=== PATIENT | male | born 1965 | race Caucasian/White ===

== ENCOUNTER 2019-08-22 08:30 | Inpatient (IN) ==
[~2019-08-22 08:30] MED LIST: LIDOCAINE W/ SODIUM BICARB 0.5 ML SYR SUBD ONE; Lactated Ringers 1,000 ML PRIMARY IV ONE; Nasal Sanitizer POPSWAB ampule 3 AMP (Nozin) PREOP DOSE ENOS SCH; Vancomycin 1.5 gm (Premix) 1.5 GM/300 ML PIGGYBACK IV ONE; Vancomycin-PHA to Dose IV PRN; ceFAZolin Inj 2gm (Premix) 2 GM/50 ML BAG IV ONE
[2019-08-22] MEDS ORDERED: Vancomycin 1.5 gm (Premix) 1.5 GM/300 ML PIGGYBACK IV ONE (09:32)
[2019-08-22] MEDS ORDERED: ceFAZolin Inj 2gm (Premix) 2 GM/50 ML BAG IV ONE (09:32)
[2019-08-22] MEDS ORDERED: LIDOCAINE W/ SODIUM BICARB 0.5 ML SYR ONE (09:33)
[2019-08-22] MEDS ORDERED: Lactated Ringers 1,000 ML PRIMARY IV ONE ×2 (09:33→15:11)
[2019-08-22] MEDS ORDERED: MIDAZOLAM HCL 2 MG/2 ML VIAL ONE (13:13)
[2019-08-22] MEDS ORDERED: REMIFENTANIL HCL 2 MG VIAL IV ONE ×2 (13:13→16:11)
[2019-08-22] MEDS ORDERED: KETAMINE 100 MG/1 ML - 5 ML ONE (13:13)
[2019-08-22] MEDS ORDERED: fentaNYL Inj 100 MCG/2 ML VIAL ONE (13:13)
[2019-08-22] MEDS ORDERED: DEXAMETHASONE PF 10 MG/1 ML VIAL ONE (13:14)
[2019-08-22] MEDS ORDERED: Propofol 1,000 MG/100 ML VIAL IV ONE ×3 (13:27→17:38)
[2019-08-22] MEDS ORDERED: KETOROLAC 30 MG/1 ML VIAL ONE ×2 (13:48→20:09)
[2019-08-22] MEDS ORDERED: THROMBIN (BOVINE) 20,000 UNIT KIT TOPICAL ONE ×2 (14:21→18:01)
[2019-08-22] MEDS ORDERED: BACITRACIN 50,000 UNIT VIAL IRRIG ONE (14:21)
[2019-08-22] MEDS ORDERED: Vancomycin Inj 1gm vial ONE (14:21)
[2019-08-22] MEDS ORDERED: Sodium Chloride 0.9% vial 10 ML ONE (14:21)
[2019-08-22] MEDS ORDERED: LIDOCAINE HCL 2 % 10 ML JELLY URO-JECT TOPICAL ONE (14:29)
[2019-08-22] MEDS ORDERED: HYDROmorphone 2 MG/1 ML ONE ×3 (14:36→20:22)
[2019-08-22] MEDS ORDERED: NEOMYCIN/BACITRACIN/POLYMYXIN 0.9 GM OINT PACKET TOPICAL ONE (14:54)
[2019-08-22] MEDS ORDERED: LIDOCAINE HCL 2 % 10 ML JELLY URO-JECT TOPICAL PRN (15:22)
[2019-08-22] MEDS ORDERED: ONDANSETRON 4 MG/2 ML VIAL IVP PRN ×2 (15:56→20:50)
[2019-08-22] MEDS ORDERED: HYDROmorphone 2 MG/1 ML IVP PRN (15:56)
[2019-08-22] MEDS ORDERED: Prochlorperazine Edisylate Inj 10mg/2ml vial IVP PRN (15:56)
[2019-08-22] MEDS ORDERED: Ondansetron ODT Tab 8 MG TAB PO PRN (15:56)
[2019-08-22] MEDS ORDERED: fentaNYL Inj 100 MCG/2 ML VIAL IVP PRN (15:56)
[2019-08-22] MEDS ORDERED: LIDOCAINE W/ SODIUM BICARB 0.5 ML SYR SUBD PRN (15:56)
[2019-08-22] MEDS ORDERED: ATROPINE SULFATE 0.4 MG/1 ML VIAL IVP PRN (15:56)
[2019-08-22] MEDS ORDERED: DIAZEPAM 10 MG/2 ML (5 MG/1 ML) CARPUJECT IVP ONE (15:58)
[2019-08-22] MEDS ORDERED: Lactated Ringers 1,000 ML PRIMARY IV SCH (16:00)
[2019-08-22] MEDS ORDERED: REMIFENTANIL 1 MG/1 ML IV ONE (18:19)
[2019-08-22] MEDS ORDERED: DIAZEPAM 10 MG/2 ML (5 MG/1 ML) CARPUJECT ONE (19:43)
[2019-08-22] MEDS ORDERED: KETOROLAC 30 MG/1 ML VIAL IM ONE (20:04)
[2019-08-22] MEDS ORDERED: CALCIUM CARBONATE 500 MG (TUMS) CHEWABLE TABLET PO PRN (20:50)
[2019-08-22] MEDS ORDERED: DOCUSATE 100 MG CAPSULE PO PRN (20:50)
[2019-08-22] MEDS ORDERED: D5-1/2NS + 20mEq KCL 1,000 ML PRIMARY IV SCH (20:50)
[2019-08-22] MEDS ORDERED: LABETALOL 20 MG/4 ML (5 MG/1 ML) SYRINGE IVP PRN (20:50)
[2019-08-22] MEDS ORDERED: MORPHINE SULFATE 2 MG/1 ML IVP PRN (20:50)
[2019-08-22] MEDS ORDERED: CYCLOBENZAPRINE 10 MG TABLET PO PRN (20:50)
[2019-08-22] MEDS ORDERED: Ondansetron ODT Tab 4 MG TAB PO PRN (20:50)
[2019-08-22] MEDS ORDERED: HYDRALAZINE 20 MG/1 ML IVP PRN (20:50)
[2019-08-22] MEDS ORDERED: Zolpidem Tab 5 MG TAB PO PRN (20:50)
[2019-08-22] MEDS ORDERED: DIAZEPAM 10 MG/2 ML (5 MG/1 ML) CARPUJECT IVP PRN (20:50)
[2019-08-22] MEDS ORDERED: ACETAMINOPHEN 325 MG TABLET PO PRN (20:50)
[2019-08-22 21:16] LABS: Hematocrit [HCT] 47.1 % (42.0-52.0); MEAN CORPUSCULAR VOLUME 95 FL (80-90); RED BLOOD COUNT 4.94 10^6/uL (4.70-6.10)
[2019-08-22 21:17] LABS: BASOPHILS % (AUTO) 0.4 % (0-1); EOSINOPHILS % (AUTO) 0.9 % (0-8); LYMPHOCYTES # (AUTO) 0.8 10*3/uL; MEAN CORPUSCULAR HGB CONC 33.9 g/dL (33-37); MEAN PLATELET VOLUME 7.5 FL (7.4-12.2); MONOCYTES % (AUTO) 1.5 % (5-15); NEUTROPHILS # (AUTO) 13.29 10*3/UL; NEUTROPHILS % (AUTO) 91.7 % (50-80)
[2019-08-22 21:18] LABS: BASOPHILS # (AUTO) 0.06 10*3/UL; EOSINOPHILS # (AUTO) 0.13 10*3/UL; MONOCYTES # (AUTO) 0.22 10*3/UL (0.3-0.8); PLATELET MORPHOLOGY COMMENT NORMAL MORPHOLOGY (NORM); RBC MORPHOLOGY COMMENT NORMAL MORPHOLOGY (NORM); WBC MORPHOLOGY COMMENT NORMAL MORPHOLOGY (NORM)
[2019-08-22 21:24] LABS: BLOOD UREA NITROGEN 16 mg/dL (7-22)
[2019-08-22] MEDS: Vancomycin 1 gm (Premix) 1 GM/200 ML PIGGYBACK IV SCH (21:25)
[2019-08-22] MEDS: oxyCODONE-ACETAMINOPHEN 5-325 TAB PO PRN (21:38)
[2019-08-22] MEDS: ceFAZolin Inj 1 GM in Sodium Chloride 0.9% 100 ML IV SCH (23:13)
[2019-08-22] MEDS: MORPHINE SULFATE 2 MG/1 ML IVP PRN (23:39)
[2019-08-23] MEDS: KETOROLAC 15 MG/1 ML VIAL IVP SCH ×4 (01:52→19:47)
[2019-08-23] MEDS: oxyCODONE-ACETAMINOPHEN 5-325 TAB PO PRN ×3 (01:53→13:04)
[2019-08-23 05:32] LABS: BASOPHILS % (AUTO) 0.4 % (0-1); EOSINOPHILS % (AUTO) 0.7 % (0-8); Hematocrit [HCT] 42.4 % (42.0-52.0); Hemoglobin [HGB] 14.4 g/dL (14.0-18.0); MEAN CORPUSCULAR HGB CONC 33.8 g/dL (33-37); MEAN CORPUSCULAR VOLUME 95 FL (80-90); MONOCYTES % (AUTO) 4.8 % (5-15); NEUTROPHILS # (AUTO) 13.04 10*3/UL; NEUTROPHILS % (AUTO) 87.4 % (50-80); RED BLOOD COUNT 4.46 10^6/uL (4.70-6.10)
[2019-08-23 05:33] LABS: BASOPHILS # (AUTO) 0.06 10*3/UL; BLOOD UREA NITROGEN 19 mg/dL (7-22); BUN/CREATININE RATIO 21.11 (6-20); EOSINOPHILS # (AUTO) 0.1 10*3/UL; MONOCYTES # (AUTO) 0.72 10*3/UL (0.3-0.8); PLATELET MORPHOLOGY COMMENT NORMAL MORPHOLOGY (NORM); RBC MORPHOLOGY COMMENT NORMAL MORPHOLOGY (NORM); WBC MORPHOLOGY COMMENT NORMAL MORPHOLOGY (NORM)
[2019-08-23] MEDS: ceFAZolin Inj 1 GM in Sodium Chloride 0.9% 100 ML IV SCH ×3 (06:30→22:51)
[2019-08-23] MEDS ORDERED: Sodium Chloride 0.9% 50 ML ONE ×2 (06:31→10:07)
[2019-08-23] MEDS: Vancomycin 1 gm (Premix) 1 GM/200 ML PIGGYBACK IV SCH ×2 (10:07→21:10)
[2019-08-23] MEDS: MORPHINE SULFATE 2 MG/1 ML IVP PRN (12:03)
[2019-08-23] MEDS ORDERED: oxyCODONE IR Tab 5 MG TAB PO ONE (15:16)
[2019-08-23] MEDS ORDERED: Diazepam 10 mg Tab (ETOH withdrawal) PO PRN (17:09)
[2019-08-23] MEDS ORDERED: Diazepam Inj (ETOH withdrawal)10 MG/2 ML CARPUJECT IVP PRN (17:09)
[2019-08-23] MEDS ORDERED: DIAZEPAM 5 MG TABLET PO PRN (17:14)
[2019-08-23] MEDS: oxyCODONE/APAP 10/325 Tab 1 EACH TAB PO PRN ×2 (17:27→21:10)
[2019-08-24] MEDS: KETOROLAC 15 MG/1 ML VIAL IVP SCH ×2 (01:28→08:32)
[2019-08-24] MEDS: oxyCODONE/APAP 10/325 Tab 1 EACH TAB PO PRN ×3 (01:28→13:50)
[2019-08-24 12:10] VITALS: RESP 16; TEMP 98.8; O2SAT 98
[2019-08-24 14:44] VITALS: BP 133/89
== END 2019-08-24 17:03 | disposition home or self-care (01) | DRG 460 ==
LOC: OPS 09:09 → MED/SURG 20:40
PROVIDERS: ADMIT Neurological Surgery; ATTEND Neurological Surgery